=== PATIENT | female | born 1980 | race Caucasian/White ===

== ENCOUNTER 2018-06-01 14:14 | Emergency (ER) | payer OTHER ==
[~2018-06-01] VITALS: Ht 162.6 cm; Wt 74.0 kg
[2018-06-01 14:14] VITALS: BP 125/68
[2018-06-01] MEDS ORDERED: bp (14:22)
--- NOTE | 2018-06-01 14:58 | REP ---
LEFT HAND, FOUR VIEWS: HISTORY: Fall. There are nondisplaced fractures of the third and fourth metacarpals. There is no dislocation. The joint spaces are normal in appearance. IMPRESSION: Nondisplaced fractures of the third and fourth metacarpals. Electronically Signed by Anirudh Davies MD 06/01/2018 03:00 P
--- NOTE | 2018-06-01 14:59 | REP ---
Left wrist series: Four views. History: Injury in a fall. Findings: Four views of the left wrist demonstrate third and fourth metacarpal fractures at the edge of the field of view. No carpal injury is seen. No distal forearm fracture is seen. Impression: Fractures of the third and fourth metacarpals incompletely seen. No carpal or distal radial or ulnar fracture seen Electronically Signed by Turner Kaufman MD 06/01/2018 03:14 P
[2018-06-01] MEDS ORDERED: NORCOTAB PO (16:42)
== END 2018-06-01 17:18 | disposition home or self-care (01) ==
LOC: M ED 14:14
DX: S62.653A Nondisplaced fracture of middle phalanx of left middle finger, initial encounter for closed fracture (principal); S62.657A Nondisplaced fracture of middle phalanx of left little finger, initial encounter for closed fracture; W10.8XXA Fall (on) (from) other stairs and steps, initial encounter; Y92.009 Unspecified place in unspecified non-institutional (private) residence as the place of occurrence of the external cause

== ENCOUNTER 2018-10-02 09:45 | Outpatient (RCR) | payer OTHER ==
[~2018-10-02 09:45] MED LIST: HYDR-3715 PO; bp
== END 2018-10-10 ==
LOC: M OT 09:45
PROVIDERS: ATTEND Physician Assistant
DX: S62.325D Displaced fracture of shaft of fourth metacarpal bone, left hand, subsequent encounter for fracture with routine healing (principal); W18.30XD Fall on same level, unspecified, subsequent encounter; Y92.009 Unspecified place in unspecified non-institutional (private) residence as the place of occurrence of the external cause

== ENCOUNTER 2018-10-16 12:57 | Outpatient (RCR) | payer OTHER | END 2018-11-10 | LOC: M OT 12:57 | PROVIDERS: ATTEND Physician Assistant | DX: S62.325D Displaced fracture of shaft of fourth metacarpal bone, left hand, subsequent encounter for fracture with routine healing (principal); W18.30XD Fall on same level, unspecified, subsequent encounter; Y92.009 Unspecified place in unspecified non-institutional (private) residence as the place of occurrence of the external cause ==